=== PATIENT | male | born 1975 | race Two or more races ===

== ENCOUNTER 2017-07-14 10:15 | Emergency (ER) | payer BC ==
--- NOTE | 2017-07-14 11:37 | EDM.PDOC ---
ED HPI GENERAL MEDICAL PROBLEM - General Chief Complaint: ENT Problem Stated Complaint: RT EYE Time Seen by Provider: 07/14/17 10:33 Source of Information: Reports: Patient, Family History Limitations: Reports: Language Barrier - History of Present Illness INITIAL COMMENTS - FREE TEXT/NARRATIVE: 41 y.o. male came to the ed due to right eye pain 2 days after he was grinding metal at home and felt initially some discomfort in his r eye. No vision loss. Just discomfort when closing and opening his r eye. No N/V/D or any other acute medial issues. Pt's family is present for translation. Onset Date: 07/12/17 Onset Time: 15:00 Duration: Day(s): Location: Reports: Face Quality: Reports: Ache Severity: Mild Improves with: Reports: Rest Worsens with: Reports: Movement Context: Reports: Other (pt was grainding mettal at home) Associated Symptoms: Reports: No Other Symptoms Right Eye Pain Score (Numeric/FACES): 6 - Related Data Allergies Allergy/AdvReac Type Severity Reaction Status Date / Time No Known Allergies Allergy Verified 07/14/17 10:31 Home Meds: Home Meds NK [No Known Home Meds] 07/14/17 [History] Past Medical History Cardiovascular History: Reports: Hypertension Endocrine/Metabolic History: Reports: Diabetes, Type II Social & Family History - Tobacco Use Smoking Status *Q: Never Smoker - Caffeine Use Caffeine Use: Reports: Coffee - Recreational Drug Use Recreational Drug Use: No ED ROS ENT - Review of Systems Review Of Systems: See Below Constitutional: Reports: No Symptoms HEENT: Reports: Eye Pain Respiratory: Reports: No Symptoms Cardiovascular: Reports: No Symptoms Endocrine: Reports: No Symptoms GI/Abdominal: Reports: No Symptoms : Reports: No Symptoms Musculoskeletal: Reports: No Symptoms Skin: Reports: No Symptoms Neurological: Reports: No Symptoms Psychiatric: Reports: No Symptoms Hematologic/Lymphatic: Reports: No Symptoms Immunologic: Reports: No Symptoms ED EXAM, ENT - Physical Exam Exam: See Below Exam Limited By: No Limitations General Appearance: Alert, WD/WN, Mild Distress Eye Exam: Right Eye: Conjunctival Injection, Other (Nop FB seen with blue light) Ears: Normal External Exam Nose: Normal Inspection Mouth/Throat: Normal Inspection Head: Atraumatic, Normocephalic Neck: Normal Inspection, Supple, Non-Tender Respiratory/Chest: No Respiratory Distress, Lungs Clear Cardiovascular: Normal Peripheral Pulses, Regular Rate, Rhythm GI/Abdominal: Normal Bowel Sounds, Soft, Non-Tender (Male) Exam: Deferred Rectal (Males) Exam: Deferred Back: Normal Inspection, Full Range of Motion Extremities: Normal Inspection, Normal Range of Motion, Non-Tender Neurological: Alert, Oriented, CN II-XII Intact, Normal Cognition, Normal Gait Psychiatric: Normal Affect, Normal Mood Skin: Warm, Dry, Intact, Normal Color, No Rash Lymphatic: No Adenopathy Course - Vital Signs Text/Narrative:: 41 y.o. male came to the ed due to right eye pain 2 days after he was grinding metal at home and felt initially some discomfort in his r eye. No vision loss. Just discomfort when closing and opening his r eye. No N/V/D or any other acute medial issues. Pt's family is present for translation. PE: Conjunctivitis r eye, no chemosis, no FB seen with "blue light and Flouro strip. Impression: Conjunctivitis, r eye, can not r/o FB r eye. Tx: Allcon for lacal anesthesia left cornea, gentamicin eye drops Reexam: improved Plan: D/C with instructions Last Recorded V/S: Last Vital Signs Temp 37.1 C 07/14/17 10:33 Pulse 70 07/14/17 10:33 Resp 18 07/14/17 10:33 BP 132/86 07/14/17 10:33 Pulse Ox 96 07/14/17 10:33 Departure - Departure Time of Disposition: 11:45 Disposition: Home, Self-Care 01 Condition: Good Clinical Impression: Conjunctivitis Qualifiers: Conjunctivitis type: acute Acute conjunctivitis type: unspecified - Discharge Information Referrals: PCP,None [Primary Care Provider] - Forms: ED Department Discharge Additional Instructions: Please apply gentamycin to r eye, 2 drops every 6 hours for 1 day, the every 8 hours for 5 days. Please f/u with an eye doctor in 24 hours if you are not entirely pain free. Please come back to our ED if your symptoms get worse acutely. Please take Motrin for pain.
[2017-07-14] MEDS ORDERED: Gentamicin 0.3% Ophth Soln 5 ML Bottle ONE (11:57)
== END 2017-07-14 12:05 | disposition home or self-care (01) ==
LOC: FB.ED 10:15
DX: H10.31 Unspecified acute conjunctivitis, right eye (principal); E11.9 Type 2 diabetes mellitus without complications; I10 Essential (primary) hypertension
CPT/HCPCS: 99283; A9270